=== PATIENT | female | born 1995 | race Caucasian/White ===

== ENCOUNTER 2017-04-14 18:53 | Emergency (ER) | payer MEDICAID ==
[~2017-04-14] VITALS: Ht 157.5 cm; Wt 70.5 kg
[2017-04-14 19:01] VITALS: BP 100/62
--- NOTE | 2017-04-14 20:43 | NUR ---
PT TAKEN TO OVERFLOW CHAIR 2.
--- NOTE | 2017-04-14 20:50 | NUR ---
PATIENT PRESENTS TO ED WITH throat pain and rash . PT STATES has throat pain . DENIES N/V/D; SKIN IS PINK/WARM/DRY; AAOX4 WITH EVEN AND STEADY GAIT; LUNGS CLEAR BL; HR EVEN AND REGULAR; PT DENIES ANY FEVER, CP, SOB, OR COUGH AT THIS TIME; PATIENT STATES PAIN OF 510 AT THIS TIME; VSS; PATIENT POSITIONED FOR COMFORT; in chair. ER MD MADE AWARE OF PT STATUS.
--- NOTE | 2017-04-14 20:53 | NUR ---
Patient being evaluated by Dr. Tate in overflow chair.
[2017-04-14] MEDS ORDERED: ceFAZolin 1,000 MG VIAL IM ONE (21:00)
[2017-04-14 21:20] VITALS: BP 100/62
--- NOTE | 2017-04-14 21:20 | NUR ---
Patient discharged with v/s stable. Written and verbal after care instructions given and explained BY DR. NAILS. Patient alert, oriented and verbalized understanding of instructions. Ambulatory with steady gait. All questions addressed prior to discharge. ID band removed. Patient advised to follow up with PMD. Rx OF NAPROSYN, KEFLEX given. Patient educated on indication of medication including possible reaction and side effects. Opportunity to ask questions provided and answered.
--- NOTE | 2017-04-14 22:11 | NUR ---
Note undone in EDM - 04/14/17 at 2225 by [id number] PATIENT PRESENTS TO ED WITH throat pain and rash . PT STATES throat pain . DENIES N/V/D; SKIN IS PINK/WARM/DRY; AAOX4 WITH EVEN AND STEADY GAIT; LUNGS CLEAR BL; HR EVEN AND REGULAR; PT DENIES ANY FEVER, CP, SOB, OR COUGH AT THIS TIME; PATIENT STATES PAIN OF 5/10 AT THIS TIME; VSS; PATIENT POSITIONED FOR COMFORT; HOB ELEVATED; BEDRAILS UP X2; BED DOWN. ER MD MADE AWARE OF PT STATUS.
== END 2017-04-14 21:20 | disposition home or self-care (01) ==
LOC: MED 18:53
DX: A46 Erysipelas (principal); J45.909 Unspecified asthma, uncomplicated
CPT/HCPCS: 96372; 99283; J0690

== ENCOUNTER 2017-10-10 08:13 | Emergency (ER) | payer MEDICAID ==
[~2017-10-10] VITALS: Ht 154.9 cm; Wt 77.1 kg
[2017-10-10 08:26] VITALS: BP 121/71
--- NOTE | 2017-10-10 08:30 | NUR ---
PT SENT TO LOBBY TO WAIT FOR A BED.
[2017-10-10] MEDS ORDERED: NACL 0.9% 1,000 ML IV ONE (09:45)
--- NOTE | 2017-10-10 09:45 | NUR ---
Pt ambulated to bed 2.
--- NOTE | 2017-10-10 09:48 | NUR ---
PATIENT PRESENTS TO ED WITH STUBBS AND VOMITING X 2 DAYS .NV DENIES ANY LOOSE STOOL; SKIN IS PINK/WARM/DRY; AAOX4 WITH EVEN AND STEADY GAIT; LUNGS CLEAR BL; HR EVEN AND REGULAR; PT DENIES ANY FEVER, CP, SOB, OR COUGH AT THIS TIME; PATIENT STATES PAIN OF 9/10 AT THIS TIME; VSS; PATIENT POSITIONED FOR COMFORT; HOB ELEVATED; BEDRAILS UP X2; BED DOWN. ER MD MADE AWARE OF PT STATUS.
[2017-10-10] MEDS ORDERED: PROCHLORPERAZINE 10 MG/2 ML VIAL IVP ONE (10:50)
[2017-10-10] MEDS ORDERED: diphenhydrAMINE 50 MG/ML VIAL IVP ONE (10:50)
--- NOTE | 2017-10-10 12:35 | NUR ---
Patient discharged with v/s stable. Written and verbal after care instructions given and explained. Patient alert, oriented and verbalized understanding of instructions. Ambulatory with steady gait. All questions addressed prior to discharge. ID band removed. Patient advised to follow up with PMD. Rx of MOTRIN AND ZOFRAN given. Patient educated on indication of medication including possible reaction and side effects. Opportunity to ask questions provided and answered.
[2017-10-10 12:40] VITALS: BP 112/68
== END 2017-10-10 12:35 | disposition home or self-care (01) ==
LOC: MED 08:13
DX: R51 Headache (principal); R11.2 Nausea with vomiting, unspecified; R10.13 Epigastric pain; J45.909 Unspecified asthma, uncomplicated
CPT/HCPCS: 96361; 96374; 96375; 99284; J0780; J1200; J7030

== ENCOUNTER 2020-09-29 19:36 | Emergency (ER) | payer MEDICAID ==
[~2020-09-29] VITALS: Ht 157.5 cm; Wt 76.7 kg
[2020-09-29 19:50] VITALS: BP 110/65
--- NOTE | 2020-09-29 19:50 | NUR ---
TO BED AMBULATORY
--- NOTE | 2020-09-29 19:58 | NUR ---
25 YR OLD FEMALE PRESENTED TO THE ER WITH CC OF VAGINAL BLEEDING. PT IS AOX4. PT STATES VAGINAL BLEEDING X2 DAYS. PT DENIES NVD. PT DENIES PAIN. PT DENIES OTHER MEDICAL COMPLAINTS. PT STATES GRAV 2 PARA 1. PT STATES CURRENTLY 9 WEEKS . BED LOCKED IN LOWEST POSITION WITH 1 SIDE RAIL UP. HISTORY- NONE ALLERGIES- NONE
--- NOTE | 2020-09-29 19:58 | NUR ---
URINE SAMPLE COLLECTED AND WALKED TO LAB
--- NOTE | 2020-09-29 20:18 | NUR ---
Ultrasound at bedside.
--- NOTE | 2020-09-29 21:00 | NUR ---
PT FOUND AWAKE SITTING ON BED. PT DENIES DISTRESS AND DENIES MEDICAL COMPLAINTS. BED LOCKED IN LOWEST POSITION WITH 1 SIDE RAIL UP.
[2020-09-29 21:06] LABS: BASOPHILS # (AUTO) 0.1 K/uL (0.00-0.22); BASOPHILS % (AUTO) 0.9 % (0.0-2.0); EOSINOPHILS # (AUTO) 0.1 K/uL (0-0.4); HEMATOCRIT 38.8 % (36-48); HEMOGLOBIN 13.1 g/dL (12.0-16.0); LYMPHOCYTES # (AUTO) 2.7 K/uL (2.5-16.5); LYMPHOCYTES % (AUTO) 27.5 % (20.5-51.1); MEAN CORPUSCULAR HEMOGLOBIN 29 pg (27-31); MEAN CORPUSCULAR HGB CONC 34 g/dL (33-37); MEAN CORPUSCULAR VOLUME 85.3 fL (80-94); MONOCYTES # (AUTO) 0.4 K/uL (0.8-1.0); MONOCYTES % (AUTO) 4.2 % (1.7-9.3); NEUTROPHILS # (AUTO) 6.6 K/uL (1.8-7.7); NEUTROPHILS % (AUTO) 66.4 % (42.2-75.2); PLATELET COUNT (AUTO) 224 K/uL (140-450); RED BLOOD CELL COUNT(AUTO) 4.55 MIL/uL (4.20-5.40); RED CELL DISTRIBUTION WIDTH 13.4 % (11.6-13.7); WHITE BLOOD COUNT (AUTO) 9.9 K/uL (4.8-10.8)
[2020-09-29 21:15] LABS: APPEARANCE,URINE HAZY (CLEAR); BILIRUBIN,URINE NEGATIVE (NEGATIVE); BLOOD, URINE NEGATIVE (NEGATIVE); COLOR,URINE YELLOW (YELLOW); LEUKOCYTE ESTERASE ,URINE NEGATIVE (NEGATIVE); NITRITE, URINE NEGATIVE (NEGATIVE); PH,URINE 6.5 (5.0-9.0); UGLUCOSE NEGATIVE (NEGATIVE)
[2020-09-29 22:26] VITALS: BP 110/65
--- NOTE | 2020-09-29 22:26 | NUR ---
Patient discharged with v/s stable. Written and verbal after care instructions given and explained. Patient verbalized understanding. Ambulatory with steady gait. All questions addressed prior to discharge. Advised to follow up with PMD.
== END 2020-09-29 22:26 | disposition home or self-care (01) ==
LOC: MED 19:36
DX: O20.0 Threatened abortion (principal); O21.8 Other vomiting complicating pregnancy; J45.909 Unspecified asthma, uncomplicated; Z3A.09 9 weeks gestation of pregnancy
CPT/HCPCS: 36415; 76817; 81003; 84702; 85025; 86900; 86901; 99284

== ENCOUNTER 2023-03-17 22:28 | Emergency (ER) | payer MEDICAID ==
[~2023-03-17] VITALS: Ht 157.5 cm; Wt 74.4 kg
[2023-03-17 22:47] VITALS: BP 138/74; PULSE 132; RESP 16; TEMP 97.4; O2SAT 98
[2023-03-18 02:20] VITALS: O2SAT 98
[2023-03-18] MEDS ORDERED: cefTRIAXone 1,000 MG in LIDOCAINE MPF 1% 2.1 ML IM ONE (04:15)
[2023-03-18] MEDS ORDERED: cefTRIAXone 1,000 MG VIAL ONE (04:17)
[2023-03-18] MEDS ORDERED: LIDOCAINE MPF 1% 5 ML ONE (04:18)
[2023-03-18] MEDS ORDERED: METR-435 PO (04:42)
== END 2023-03-18 04:46 | disposition home or self-care (01) ==
LOC: MED 22:28
DX: K61.1 Rectal abscess (principal); J45.909 Unspecified asthma, uncomplicated; Z90.49 Acquired absence of other specified parts of digestive tract
CPT/HCPCS: 74176; 96372; 99285; J0696; J2001

== ENCOUNTER 2023-03-22 08:27 | Inpatient (IN) | payer BC, MEDICAID ==
[~2023-03-22] VITALS: Ht 157.5 cm; Wt 73.5 kg
[~2023-03-22 08:27] MED LIST: METR-435 PO
[2023-03-22 08:51] VITALS: BP 101/67; PULSE 99; RESP 20; TEMP 98; O2SAT 100
[2023-03-22] MEDS ORDERED: MORPHINE SULFATE 4 MG/ML SYR IVP ONE ×2 (09:20→19:10)
[2023-03-22] MEDS ORDERED: ONDANSETRON 4 MG/2 ML VIAL IVP ONE (09:20)
[2023-03-22 11:11] LABS: BASOPHILS # (AUTO) 0.1 K/uL (0.00-0.22); BASOPHILS % (AUTO) 0.3 % (0.0-2.0); EOSINOPHILS # (AUTO) 0.1 K/uL (0-0.4); EOSINOPHILS % (AUTO) 0.3 % (0.0-4.0); HEMATOCRIT 36.6 % (36-48); LYMPHOCYTES # (AUTO) 2.1 K/uL (2.5-16.5); LYMPHOCYTES % (AUTO) 10.5 % (20.5-51.1); MEAN CORPUSCULAR HEMOGLOBIN 27 pg (27-31); MEAN CORPUSCULAR HGB CONC 33 g/dL (33-37); MEAN CORPUSCULAR VOLUME 81.3 fL (80-94); MONOCYTES # (AUTO) 1.4 K/uL (0.8-1.0); MONOCYTES % (AUTO) 7.2 % (1.7-9.3); NEUTROPHILS % (AUTO) 81.7 % (42.2-75.2); PLATELET COUNT (AUTO) 264 K/uL (140-450); RED BLOOD CELL COUNT(AUTO) 4.51 MIL/uL (4.20-5.40); RED CELL DISTRIBUTION WIDTH 13.9 % (11.6-13.7); WHITE BLOOD COUNT (AUTO) 19.7 K/uL (4.8-10.8)
[2023-03-22 11:36] LABS: INR 1.14 (0.8-1.2); PROTHROMBIN TIME 11.9 secs (10.8-13.4)
[2023-03-22 11:46] LABS: ALANINE AMINOTRANSFERASE 36 U/L (12-78); ALBUMIN 3.1 g/dL (3.4-5.0); ALKALINE PHOSPHATASE 110 U/L (50-136); ANION GAP 13.1 (8-16); ASPARTATE AMINOTRANSFERASE 29 U/L (15-37); CALCIUM 8.9 mg/dL (8.5-10.1); CARBON DIOXIDE 27.2 mmol/L (21-32); CHLORIDE 98 mmol/L (98-107); CREATINE KINASE, TOTAL 51 U/L (26-192); CREATININE 0.8 mg/dL (0.6-1.3); GFR ARICAN-AMERICAN 112 mL/min (>90); GFR NON ARICAN-AMERICAN 92 mL/min (>90); GLUCOSE 103 mg/dL (74-106); POTASSIUM 3.3 mmol/L (3.5-5.1); SODIUM SERUM 135 mmol/L (136-145); TOTAL BILIRUBIN 0.2 mg/dL (0.0-1.0); TOTAL PROTEIN, SERUM 8.5 g/dL (6.4-8.2); UREA NITROGEN, BLOOD 6 mg/dL (7-18)
[2023-03-22 11:48] LABS: LACTIC ACID 1.2 mmol/L (0.4-2.0)
[2023-03-22] MEDS ORDERED: NACL 0.9% 2,000 ML IV ONE (12:30)
[2023-03-22] MEDS ORDERED: PIPERACILLIN/TAZOBACTAM 3.375 GM in DEXTROSE 5% 50 ML IV ONE (12:55)
[2023-03-22] MEDS ORDERED: PIPERACILLIN/TAZOBACTAM 3.375 GM VIAL IV ONE ×2 (13:17→22:42)
[2023-03-22] MEDS ORDERED: HYDROcodone/APAP 5/325 MG 1 TAB TAB PO PRN ×2 (18:55)
[2023-03-22] MEDS ORDERED: ONDANSETRON 4 MG/2 ML VIAL IVP PRN (18:55)
[2023-03-22] MEDS ORDERED: ACETAMINOPHEN 325 MG TAB PO PRN (18:55)
[2023-03-22 21:00] VITALS: BP 117/66; PULSE 107; RESP 18; TEMP 97.1; O2SAT 97
[2023-03-22] MEDS: PIPERACILLIN/TAZOBACTAM 3.375 GM in DEXTROSE 5% 50 ML IV SCH (22:50)
[2023-03-23] VITALS: BP 117/66; PULSE 107; RESP 18; TEMP 97.1; O2SAT 97
[2023-03-23 00:30] VITALS: BP_SYST 117; BP_SYST 122; BP_DIAS 66; BP_DIAS 70; PULSE 114; RESP 18; TEMP 97.9; TEMP 98; O2SAT 98
[2023-03-23] MEDS: MORPHINE SULFATE 4 MG/ML SYR IVP PRN ×4 (00:43→15:19)
[2023-03-23 04:00] VITALS: BP 110/59; PULSE 102; RESP 18; TEMP 98; O2SAT 97
[2023-03-23 05:19] LABS: BASOPHILS # (AUTO) 0.1 K/uL (0.00-0.22); BASOPHILS % (AUTO) 0.3 % (0.0-2.0); EOSINOPHILS # (AUTO) 0.1 K/uL (0-0.4); EOSINOPHILS % (AUTO) 0.3 % (0.0-4.0); HEMATOCRIT 33.7 % (36-48); HEMOGLOBIN 10.9 g/dL (12.0-16.0); LYMPHOCYTES # (AUTO) 3.6 K/uL (2.5-16.5); LYMPHOCYTES % (AUTO) 15.8 % (20.5-51.1); MEAN CORPUSCULAR HEMOGLOBIN 27 pg (27-31); MEAN CORPUSCULAR HGB CONC 32 g/dL (33-37); MEAN CORPUSCULAR VOLUME 82.2 fL (80-94); MONOCYTES # (AUTO) 1.8 K/uL (0.8-1.0); MONOCYTES % (AUTO) 7.9 % (1.7-9.3); NEUTROPHILS # (AUTO) 17.3 K/uL (1.8-7.7); NEUTROPHILS % (AUTO) 75.7 % (42.2-75.2); PLATELET COUNT (AUTO) 280 K/uL (140-450); RED CELL DISTRIBUTION WIDTH 14.4 % (11.6-13.7); WHITE BLOOD COUNT (AUTO) 22.9 K/uL (4.8-10.8)
[2023-03-23 05:31] LABS: ALBUMIN 2.9 g/dL (3.4-5.0); ANION GAP 13.2 (8-16); CALCIUM 8.9 mg/dL (8.5-10.1); CARBON DIOXIDE 27.3 mmol/L (21-32); CREATININE 0.8 mg/dL (0.6-1.3); MAGNESIUM 2.1 mg/dL (1.8-2.4); PHOSPHORUS 4.4 mg/dL (2.5-4.9); POTASSIUM 3.5 mmol/L (3.5-5.1); TOTAL BILIRUBIN 0.3 mg/dL (0.0-1.0); TOTAL PROTEIN, SERUM 8.2 g/dL (6.4-8.2)
[2023-03-23] MEDS ORDERED: PIPERACILLIN/TAZOBACTAM 3.375 GM VIAL IV ONE (06:15)
[2023-03-23] MEDS: PIPERACILLIN/TAZOBACTAM 3.375 GM in DEXTROSE 5% 50 ML IV SCH ×3 (06:17→21:06)
[2023-03-23 08:00] VITALS: BP 106/64; PULSE 107; RESP 16; TEMP 97.2; O2SAT 97
[2023-03-23] MEDS ORDERED: ENOXAPARIN 40 MG/0.4 ML SYR SUBQ SCH (09:00)
[2023-03-23 16:00] VITALS: BP 106/62; PULSE 113; RESP 18; TEMP 97.6; O2SAT 99
[2023-03-23] MEDS ORDERED: HYDROGEN PEROXIDE 3% 240 ML BTL TP ONE (17:46)
[2023-03-23] MEDS ORDERED: SEVOFLURANE 250 ML BTL INH ONE (17:54)
[2023-03-23] MEDS ORDERED: PROPOFOL 200 MG/20 ML VIAL IV ONE (17:54)
[2023-03-23] MEDS ORDERED: fentaNYL citrate 0.05 MG/ML VIAL ONE (18:01)
[2023-03-23] MEDS ORDERED: METOCLOPRAMIDE 10 MG/2 ML INJ VIAL ONE (18:12)
[2023-03-23] MEDS ORDERED: ONDANSETRON 4 MG/2 ML VIAL ONE (18:26)
[2023-03-23] MEDS ORDERED: KETOROLAC 30 MG/ML VIAL ONE (18:26)
[2023-03-23] MEDS ORDERED: HYDROmorphone PFS 2 MG/ML SYR ONE (18:58)
[2023-03-23] MEDS ORDERED: LACTATED RINGERS 1,000 ML IV SCH (19:00)
[2023-03-23] MEDS: HYDROmorphone 1 MG/ML AMP IVP PRN ×4 (19:00→19:30)
[2023-03-23] MEDS ORDERED: hydrALAZINE 20 MG/ML VIAL IVP PRN (19:00)
[2023-03-23] MEDS ORDERED: LABETALOL 20 MG/4 ML VIAL IVP PRN (19:00)
[2023-03-23 20:00] VITALS: BP 102/56; PULSE 106; RESP 20; TEMP 96; O2SAT 97
[2023-03-24] VITALS: BP 104/64; PULSE 91; RESP 20; TEMP 96.4; O2SAT 98
[2023-03-24 04:00] VITALS: BP 107/66; PULSE 94; RESP 20; TEMP 97.8; O2SAT 96
[2023-03-24] MEDS: PIPERACILLIN/TAZOBACTAM 3.375 GM in DEXTROSE 5% 50 ML IV SCH ×2 (04:17→12:43)
[2023-03-24 05:25] LABS: BASOPHILS % (AUTO) 0.2 % (0.0-2.0); EOSINOPHILS # (AUTO) 0.1 K/uL (0-0.4); EOSINOPHILS % (AUTO) 0.6 % (0.0-4.0); HEMATOCRIT 33.1 % (36-48); HEMOGLOBIN 10.8 g/dL (12.0-16.0); LYMPHOCYTES # (AUTO) 2.9 K/uL (2.5-16.5); LYMPHOCYTES % (AUTO) 17.5 % (20.5-51.1); MEAN CORPUSCULAR HEMOGLOBIN 27 pg (27-31); MEAN CORPUSCULAR HGB CONC 33 g/dL (33-37); MEAN CORPUSCULAR VOLUME 81.6 fL (80-94); MONOCYTES # (AUTO) 1.1 K/uL (0.8-1.0); MONOCYTES % (AUTO) 6.9 % (1.7-9.3); NEUTROPHILS # (AUTO) 12.3 K/uL (1.8-7.7); NEUTROPHILS % (AUTO) 74.8 % (42.2-75.2); PLATELET COUNT (AUTO) 289 K/uL (140-450); RED BLOOD CELL COUNT(AUTO) 4.05 MIL/uL (4.20-5.40); RED CELL DISTRIBUTION WIDTH 14.2 % (11.6-13.7); WHITE BLOOD COUNT (AUTO) 16.5 K/uL (4.8-10.8)
[2023-03-24 05:28] LABS: ANION GAP 13.8 (8-16); CALCIUM 8.7 mg/dL (8.5-10.1); CARBON DIOXIDE 26.5 mmol/L (21-32); CREATININE 0.7 mg/dL (0.6-1.3); POTASSIUM 3.3 mmol/L (3.5-5.1)
[2023-03-24] MEDS: MORPHINE SULFATE 4 MG/ML SYR IVP PRN (08:16)
[2023-03-24 09:10] VITALS: PULSE 81; RESP 18; O2SAT 97
[2023-03-24 09:12] VITALS: TEMP 97.5
[2023-03-24 09:14] VITALS: BP 101/61; PULSE 81; RESP 18; TEMP 97.5; O2SAT 98
[2023-03-24] MEDS ORDERED: POTASSIUM CHLORIDE 10 MEQ TABER PO PRN (09:30)
[2023-03-24 09:40] VITALS: BP 101/61; PULSE 81; RESP 18; TEMP 97.5; O2SAT 98
[2023-03-24] MEDS ORDERED: METR-435 PO (10:31)
[2023-03-24] MEDS ORDERED: ACET-9525 PO (10:35)
[2023-03-24] MEDS: HYDROmorphone 1 MG/ML AMP IVP PRN (12:27)
[2023-03-24] MEDS ORDERED: NON ADHERENT DRESSING TP PRN (13:45)
[2023-03-25] MEDS ORDERED: NON ADHERENT DRESSING TP SCH (13:00)
[2023-03-27] MEDS ORDERED: AMOX-999 PO (08:50)
== END 2023-03-24 17:10 | disposition home health service (06) | DRG 710 ==
LOC: MED 08:27 → MMU 16:08 → MTU 18:39
PROVIDERS: ADMIT Student in an Organized Health Care Education/Training Program; ATTEND Student in an Organized Health Care Education/Training Program
PROC: 0Y910ZZ Drainage of Left Buttock, Open Approach (ICD-10-PCS; 2023-03-23)
PROC: 0D9Q0ZZ Drainage of Anus, Open Approach (ICD-10-PCS; principal; 2023-03-23 15:50)
DX: A41.9 Sepsis, unspecified organism (principal); E87.1 Hypo-osmolality and hyponatremia; K61.0 Anal abscess; L02.31 Cutaneous abscess of buttock; E87.6 Hypokalemia; F12.90 Cannabis use, unspecified, uncomplicated; J45.909 Unspecified asthma, uncomplicated; Z90.49 Acquired absence of other specified parts of digestive tract
CPT/HCPCS: 36415; 72193; 80048; 80053; 82550; 82553; 83605; 83735; 83874; 84100; 84484; 85025; 85610; 85730; 87040; 87070; 87075; 87081; 87205; 96365; 96375; 99285; J1170; J1650; J1885; J2270; J2405; J2543; J2704; J2765; J3010; J7060; J7120; Q9967

== ENCOUNTER 2023-08-02 15:19 | Emergency (ER) | payer BC ==
[~2023-08-02] VITALS: Ht 157.5 cm; Wt 70.8 kg
[~2023-08-02 15:19] MED LIST changes: +ACET-9525 PO; +AMOX-999 PO; -METR-435 PO
[2023-08-02 15:28] VITALS: BP 110/71; PULSE 104; RESP 16; TEMP 97.8; O2SAT 99
[2023-08-02 18:10] VITALS: PULSE 99; TEMP 97.8
== END 2023-08-02 18:10 | disposition home or self-care (01) ==
LOC: MED 15:19
DX: Z00.8 Encounter for other general examination (principal)
CPT/HCPCS: 81002; 81025; 99282

== ENCOUNTER 2023-10-02 15:06 | Emergency (ER) | payer BC ==
[~2023-10-02] VITALS: Ht 157.5 cm; Wt 70.8 kg
[2023-10-02 15:27] VITALS: BP 112/68; PULSE 103; RESP 18; TEMP 97.3; O2SAT 98
[2023-10-02] MEDS ORDERED: CEPH-588 PO (17:19)
[2023-10-02 17:29] VITALS: BP 112/68; PULSE 103; RESP 18; TEMP 97.3; O2SAT 98
== END 2023-10-02 17:29 | disposition home or self-care (01) ==
LOC: MED 15:06
DX: O99.711 Diseases of the skin and subcutaneous tissue complicating pregnancy, first trimester (principal); L02.31 Cutaneous abscess of buttock; O99.511 Diseases of the respiratory system complicating pregnancy, first trimester; J45.909 Unspecified asthma, uncomplicated; Z3A.11 11 weeks gestation of pregnancy; Z79.899 Other long term (current) drug therapy
CPT/HCPCS: 99283